=== PATIENT | male | born 1965 | race Caucasian/White ===

== ENCOUNTER → 2016-10-03 | Outpatient (CLI) | payer OTHER ==
[~2016-10-03] MED LIST: CEPH500C2 PO; CLON1TAB3 PO; OMEP20CA9 PO
--- NOTE | 2016-10-03 09:14 | DIAGNOSTIC IMAGING REPORT ---
LEFT SHOULDER MIN 2 VIEWS ROUTINE CLINICAL HISTORY: Left shoulder pain following injury. COMPARISON: None FINDINGS: Alignment of the left shoulder is anatomic. There is no acute fracture. There is mild AC joint arthritis and minimal glenohumeral joint arthritis. IMPRESSION: 1. No acute fracture or dislocation of the left shoulder. 2. Mild arthritis of the left acromioclavicular and glenohumeral joints. Electronically signed by: David Brady M.D. 10/03/2016 9:13 AM Dictated Date/Time: 10/03/2016 8:45 AM
== END | disposition home or self-care (01) ==
LOC: C.LAB1850 08:18
PROVIDERS: ATTEND Nurse Practitioner Adult Health
DX: M25.512 Pain in left shoulder (principal)

== ENCOUNTER → 2017-05-20 | Outpatient (CLI) | payer OTHER ==
[2017-05-20 18:15] LABS: SYNOVIAL FLUID APPEARANCE HAZY; SYNOVIAL FLUID COLOR PALE YELLOW
[2017-05-22 21:31] LABS: LYME DNA PCR CSF OR SYNOVIAL Detected (Not Detected); LYME DNA SOURCE Synovial Fluid
== END ==
LOC: C.LABBC 14:33
PROVIDERS: ATTEND Orthopaedic Surgery Sports Medicine
DX: M25.462 Effusion, left knee (principal)

== ENCOUNTER → 2017-06-26 | Outpatient (CLI) | payer OTHER ==
[2017-06-26 16:55] LABS: SYNOVIAL FLUID APPEARANCE HAZY; SYNOVIAL FLUID COLOR YELLOW; SYNOVIAL FLUID MONONUC RELAT 26.3 %; SYNOVIAL FLUID POLYNUC RELAT 73.7 %
[2017-07-01 16:35] LABS: LYME DNA PCR CSF OR SYNOVIAL Detected (Not Detected); LYME DNA SOURCE Synovial Fluid
== END | disposition home or self-care (01) ==
LOC: C.LABBC 14:37
PROVIDERS: ATTEND Orthopaedic Surgery Sports Medicine
DX: M25.469 Effusion, unspecified knee (principal)

== ENCOUNTER → 2017-07-03 | Outpatient (CLI) | payer BC ==
[2017-07-03 12:03] LABS: LYME DISEASE AB IGG POS (NEG); LYME DISEASE AB IGM POS (NEG)
[2017-07-06 18:37] LABS: ANAPLASMA PHAGOCYTOPHIL IGG <1:64 (<1:64); ANAPLASMA PHAGOCYTOPHIL IGM <1:20 (<1:20)
== END | disposition home or self-care (01) ==
LOC: C.LAB1850 10:04
PROVIDERS: ATTEND Internal Medicine Infectious Disease
DX: A69.20 Lyme disease, unspecified (principal)

== ENCOUNTER 2022-10-19 12:20 | Observation (INO) ==
[2022-10-19] MEDS ORDERED: SODIUM CHLORIDE 0.9% 1000ML 1,000 ML IV STA (12:27)
[2022-10-19] MEDS ORDERED: SODIUM CHLORIDE 0.9% 500 ML IV SCH (12:30)
[2022-10-19 12:55] LABS: Basophils # (auto) 0.04 K/uL (0-0.2); Basophils % (auto) 0.5 %; Eosinophils # (auto) 0.07 K/uL (0-0.50); Eosinophils % (auto) 0.9 %; Hematocrit (blood only) 32.3 % (42.0-52.0); Hemoglobin 11.1 g/dl (14.0-18.0); Immature Granulocytes # (auto) 0.02 K/uL (0.01-0.20); Immature Granulocytes % (auto) 0.3 %; Lymphocytes # (auto) 2.11 K/uL (1.2-3.4); Lymphocytes % (auto) 27.2 %; Mean Corpuscular Hemoglobin 32.7 pg (25.0-34.0); Mean Corpuscular Hgb Conc 34.4 g/dL (32.0-36.0); Mean Corpuscular Volume 95.3 fL (80.0-100.0); Mean Platelet Volume 9.9 fL (9.4-12.4); Neutrophils # (auto) 4.82 K/uL (1.40-6.50); Neutrophils % (auto) 62.1 %; Platelet Count 175 K/uL (130-400); RDW Coefficient of Variation 15.6 % (11.5-14.5); RDW Standard Deviation 54.4 fL (36.4-46.3); Red Blood Count 3.39 M/uL (4.70-6.10); White Blood Count 7.76 K/ul (4.8-10.8)
[2022-10-19 13:13] LABS: iSTAT Creatinine 0.9 mg/dl (0.6-1.3); iSTAT Hemoglobin 11.2 g/dl (14.0-18.0); iSTAT Ionized Calcium 1.2 mmol/l (1.12-1.32); iSTAT Potassium 3.7 mmol/L (3.3-5.0)
--- NOTE | 2022-10-19 13:16 | Emergency Department Note ---
Impression & Plan Acute lower GI bleeding, Status post colonoscopy with polypectomy ED Provider Note INFORMANT: Patient ED PROVIDER(S): Cheng Koch MD CHIEF COMPLAINT: Rectal bleeding PLAN: Disposition: Admitted Condition: Good Outpatient prescription management: none Referral: None patient presented emergency room because of rectal bleeding. He is 2 days post colonoscopy. Patient had MEDICAL DECISION MAKING: Images of his bathroom and there was a significant on a blood in his toilet bowl. He was hemodynamically stable although very mildly tachycardic on arrival. Patient was hydrated with IV normal saline. Patient had an i-STAT performed and it showed very mild anemia. Record review indicated the patient has a history of anemia although he is about a point and a half lower than normal. Remainder of the patient's blood work was unremarkable. Imaging was considered but deferred given his benign abdomen. Because of the recent procedure I did consult with gastroenterology on-call, . She recommended having the patient brought into the hospitalist service, prepped and then evaluated for potential management with gastroenterology tomorrow. I discussed this with the patient and significant other. They were in agreement. Consultation was made with the [facility] hospitalist service. Case was discussed and diagnostics were reviewed. Patient was evaluated in the ER and admitted for further management Discussed with manager reporting. After review of the information above and other included data, I feel the patient is further management in the hospital. Triage Nursing notes reviewed and agree them. Vital Signs: reviewed and remarkable for minimal tachycardia Prior /Outside records reviewed: Colonoscopy and endoscopy reports reviewed. Patient did have a cold snare biopsy of the colonic polyps. Differential diagnosis: Post colonoscopy bleeding, diverticulosis, AVM, coagulopathy, colitis, inflammatory bowel disease, malignancy, Viviana-Tang tear, esophagitis, peptic ulcer disease, variceal bleed, gastritis, epistaxis, fissure, hemorrhoids, as well as other pathologies. Diagnostics, as interpreted by me: EC Lead ECG performed and revealed Normal sinus rhythm at 82, normal Hettinger, QRS normal. No elevation or depression. No PACs or PVCs Cardiac Monitoring: Cardiac monitoring ordered by me: The patient was placed on continuous cardiac monitoring and observed. It revealed a normal sinus rhythm at 98 beats per minute without ectopy or evidence of dysrhythmia. Medical decision rules: none Imaging studies: Deferred HPI: The patient is a 57year old male who presents to the Emergency Room with complaints of rectal bleeding. Patient underwent colonoscopy with polyp removal 2 days ago. This started a little yesterday and then is noted to have increased significantly. Patient notes about 6 bloody bowel movements. the patient also notes the following associated symptoms, a little bit of lightheadedness, feeling somewhat bloated but denies any abdominal pain. Patient is not on any blood thinners, Plavix or aspirin. The patient has no medication for relieving factors. Current pain is rated as 0/10. Pt denies LOC, headache, fevers, chill s, diaphoresis, visual changes, neck pain, chest pain, breathing difficulties, nausea, vomiting, abdominal pain, back pain, melena, urinary symptoms, numbness, weakness, lymphadenopathy, rash, or other complaints. PAST MEDICAL HISTORY: See Below, GERD PAST SURGICAL HISTORY: See Below, endoscopy and colonoscopy SOCIAL HISTORY: See Below, employed HOME MEDICATIONS: See Below ALLERGIES: See Below VITALS: See Below PHYSICAL EXAMINATION: GENERAL: Awake, alert, well-appearing, in no distress HENT: Normocephalic, atraumatic. Oropharynx unremarkable. EYES: Mildly pale conjunctiva. Sclera non-icteric. NECK: Inspection normal. Non-tender. Supple. No nuchal rigidity. FROM. No masses. RESPIRATORY: Clear to auscultation. No wheezes. No rales. Normal respiratory effort. CARDIAC: Borderline tachycardic rate. Normal rhythm. No murmurs. No rubs. Extremities warm and well perfused. Pulses equal. No JVD. GI: Soft, non-distended. No tenderness to palpation. No rebound or guarding. No masses. RECTAL: Deferred. MUSCULOSKELETAL: Atraumatic. Chest examination reveals no tenderness. The back is symmetrical on inspection without obvious abnormality. There is no CVA tenderness to palpation. No joint edema. LOWER EXTREMITIES: Calves are equal size bilaterally and non-tender. No edema. No discoloration. NEURO: Normal sensorium. No sensory or motor deficits noted. SKIN: No rash or jaundice noted. Past Med/Surg History Medical History Elevated liver enzymes GERD (gastroesophageal reflux disease) Hepatic steatosis History of IBS Lyme disease LAST DX 2020 Prediabetes Restless leg syndrome Surgical History H/O colonoscopy History of tonsillectomy History of tooth extraction Family History Father Prostate cancer Lung cancer Mother Diabetes Grandmother (Paternal) Breast cancer Other No family history of adverse response to anesthesia Denies family history of Ovarian cancer Myocardial infarction Colorectal cancer Social History (Updated 05/01/22 @ 14:32 by Chani Juárez LPN) Smoking Status: Never smoker Age Started Using Tobacco: 11; Age Quit Using Tobacco: 28; Second Hand Exposure: Yes ( A CHILD); Hx Alcohol Use: Yes Alcohol type: beer Alcohol Intake Frequency: 4 or More x per/Week Hx Substance Use: No Preferred Language: Czech Visual Impairment: No Limitations Hearing Ability: Normal Hotel Server Required: No Beliefs That Will Affect Care: None marital status: Current Living Situation: Spouse current occupational status: employed 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 Feels Safe at Home: Yes Childhood Exposure to Second-Hand Smoke: Yes caffeine: No during the past year weight has: decreased > 10 lbs Dental Care, Regularly: No Physical Activity Frequency: Does not Exercise Seatbelt Use: always Sunscreen Use: No Assistive Devices: Denture - Upper and Denture - Lower Allergies Allergies Allergy/AdvReac Type Severity Reaction Status Date / Time trimethoprim Allergy Mild Rash Verified 10/19/22 14:20 Home Meds Home Medications Medication Instructions Recorded Confirmed cholecalciferol (vitamin D3) 25 25 mcg PO QAM 10/13/22 10/19/22 mcg (1,000 unit) tablet (Vitamin D3) metformin 500 mg tablet 500 mg PO QPM 10/13/22 10/19/22 milk thistle 200 mg capsule 200 mg PO QAM 10/13/22 10/19/22 multivitamin 1 tab PO QAM 10/13/22 10/19/22 omega-3 fatty acids 1,000 mg PO QAM 10/13/22 10/19/22 omeprazole 20 mg capsule,delayed 20 mg PO QAM 10/13/22 10/19/22 release turmeric 400 mg capsule 400 mg PO QAM 10/13/22 10/19/22 Previous Rx's Medication Instructions Recorded blood sugar diagnostic ([employer] #100 ea 05/13/22 Ultra Test strips) blood-glucose meter ([employer] #1 ea 05/13/22 Ultra2 Meter kit) lancets 30 gauge (OneTouch Delica #100 ea 05/13/22 Lancets) clonazepam 1 mg tablet See Rx Instructions PO DAILY PRN 09/05/22 restless leg(s) #30 tabs sildenafil (pulm.hypertension) 20 See Rx Instructions PO .COMPLEX 09/05/22 mg tablet #90 tabs Results & Data (ED) Vital Signs Vital Signs - 24 hr 10/19/22 12:22 10/19/22 12:40 10/19/22 13:28 Temperature 36.4 C L Temperature Source Temporal Artery Scan Pulse Rate 100 H 77 Pulse Rate [Apical] Respiratory Rate 19 Respiratory Effort / Characteristics Non-Labored Blood Pressure 149/96 H Blood Pressure [Left Arm] Blood Pressure Mean 113 Blood Pressure Mean [Left Arm] Pulse Oximetry 98 98 Oxygen Delivery Method Room Air Room Air Sepsis Recent Fever Within 48 Hours No Sepsis New/Unexplained Change in Mental Status N/A Sepsis Action Taken by Nursing No Action Required 10/19/22 14:13 10/19/22 14:30 Temperature Temperature Source Pulse Rate 78 Pulse Rate [Apical] 78 Respiratory Rate 18 17 Respiratory Effort / Characteristics Blood Pressure Blood Pressure [Left Arm] 137/86 Blood Pressure Mean Blood Pressure Mean [Left Arm] 103 Pulse Oximetry 96 Oxygen Delivery Method Room Air Sepsis Recent Fever Within 48 Hours Sepsis New/Unexplained Change in Mental Status Sepsis Action Taken by Nursing Laboratory Data 10/19/22 12:42 10/19/22 12:42 Lab Results 10/19/22 10/19/22 10/19/22 Range/Units 12:42 12:42 12:42 WBC 7.76 (4.8-10.8) K/ul RBC 3.39 L (4.70-6.10) M/uL Hgb 11.1 L (14.0-18.0) g/dl POC Hgb (14.0-18.0) g/dl Hct 32.3 L (42.0-52.0) % POC Hct (42-52) % MCV 95.3 (80.0-100.0) fL MCH 32.7 (25.0-34.0) pg MCHC 34.4 (32.0-36.0) g/dL RDW Std Deviation 54.4 H (36.4-46.3) fL RDW Coeff of Giacomo 15.6 H (11.5-14.5) % Plt Count 175 (130-400) K/uL MPV 9.9 (9.4-12.4) fL Immature Gran % (Auto) 0.3 % Neut % (Auto) 62.1 % Lymph % (Auto) 27.2 % [place] % (Auto) 9.0 % Eos % (Auto) 0.9 % Baso % (Auto) 0.5 % Neut # (Auto) 4.82 (1.40-6.50) K/uL Lymph # (Auto) 2.11 (1.2-3.4) K/uL [place] # (Auto) 0.70 H (0.11-0.59) K/uL Eos # (Auto) 0.07 (0-0.50) K/uL Baso # (Auto) 0.04 (0-0.2) K/uL Immature Gran # (Auto) 0.02 (0.01-0.20) K/uL PT 11.2 (9.0-12.0) Seconds INR 1.1 (0.9-1.1) APTT 22.9 (21.0-31.0) Seconds PTT Ratio 0.8 POC Sodium (135-144) mmol/L Sodium (136-145) mmol/L POC Potassium (3.3-5.0) mmol/L Potassium (3.5-5.1) mmol/L POC Chloride (101-112) mmol/L Chloride (98-107) mmol/L Carbon Dioxide (21-32) mmol/L POC Total CO2 (24-31) mmol/L Anion Gap (3-11) POC Anion Gap (16-25) mmol/L POC BUN (7-18) mg/dl BUN (6-23) mg/dl Creatinine (0.6-1.4) mg/dl POC Creatinine (0.6-1.3) mg/dl Est Cr Clr Drug Dosing ml/min Est GFR ( Amer) ml/min Est GFR (Non-Af Amer) ml/min BUN/Creatinine Ratio (10-20) Glucose (70-99(Fasting)) mg/dl POC Glucose (other) (70-99) mg/dl Calcium (8.5-10.1) mg/dl POC Ioniz Calcium Jonathan (1.12-1.32) mmol/l Total Bilirubin (0.2-1.0) mg/dl AST (13-39) U/L ALT (7-52) U/L Alkaline Phosphatase (34-104) U/L Troponin I High Sens (0-20) pg/ml Total Protein (6.0-8.3) gm/dl Albumin (3.4-5.0) gm/dl Globulin (2.5-4.0) gm/dl Albumin/Globulin Ratio (0.9-2) SARS-CoV-2, RNA, NAAT (NEGATIVE) Blood Type A Positive Antibody Screen NEGATIVE 10/19/22 10/19/22 10/19/22 Range/Units 12:42 12:59 13:20 WBC (4.8-10.8) K/ul RBC (4.70-6.10) M/uL Hgb (14.0-18.0) g/dl POC Hgb 11.2 L (14.0-18.0) g/dl Hct (42.0-52.0) % POC Hct 33 L (42-52) % MCV (80.0-100.0) fL MCH (25.0-34.0) pg MCHC (32.0-36.0) g/dL RDW Std Deviation (36.4-46.3) fL RDW Coeff of Giacomo (11.5-14.5) % Plt Count (130-400) K/uL MPV (9.4-12.4) fL Immature Gran % (Auto) % Neut % (Auto) % Lymph % (Auto) % [place] % (Auto) % Eos % (Auto) % Baso % (Auto) % Neut # (Auto) (1.40-6.50) K/uL Lymph # (Auto) (1.2-3.4) K/uL [place] # (Auto) (0.11-0.59) K/uL Eos # (Auto) (0-0.50) K/uL Baso # (Auto) (0-0.2) K/uL Immature Gran # (Auto) (0.01-0.20) K/uL PT (9.0-12.0) Seconds INR (0.9-1.1) APTT (21.0-31.0) Seconds PTT Ratio POC Sodium 139 (135-144) mmol/L Sodium 137 (136-145) mmol/L POC Potassium 3.7 (3.3-5.0) mmol/L Potassium 3.8 (3.5-5.1) mmol/L POC Chloride 102 (101-112) mmol/L Chloride 104 (98-107) mmol/L Carbon Dioxide 30 (21-32) mmol/L POC Total CO2 25 (24-31) mmol/L Anion Gap 3 (3-11) POC Anion Gap 17.0 (16-25) mmol/L POC BUN 14 (7-18) mg/dl BUN 16 (6-23) mg/dl Creatinine 0.91 (0.6-1.4) mg/dl POC Creatinine 0.9 (0.6-1.3) mg/dl Est Cr Clr Drug Dosing 81.7 ml/min Est GFR ( Amer) 106.5 ml/min Est GFR (Non-Af Amer) 91.9 ml/min BUN/Creatinine Ratio 17.6 (10-20) Glucose 117 H (70-99(Fasting)) mg/dl POC Glucose (other) 114 H (70-99) mg/dl Calcium 9.0 (8.5-10.1) mg/dl POC Ioniz Calcium Jonathan 1.20 (1.12-1.32) mmol/l Total Bilirubin 1.3 H (0.2-1.0) mg/dl AST 17 (13-39) U/L ALT 17 (7-52) U/L Alkaline Phosphatase 52 (34-104) U/L Troponin I High Sens 3.6 (0-20) pg/ml Total Protein 6.7 (6.0-8.3) gm/dl Albumin 4.0 (3.4-5.0) gm/dl Globulin 2.7 (2.5-4.0) gm/dl Albumin/Globulin Ratio 1.5 (0.9-2) SARS-CoV-2, RNA, NAAT NEGATIVE (NEGATIVE) Blood Type Antibody Screen Administered Medications Sodium Chloride (Nss 1000ml) 1,000 mls @ 125 mls/hr IV .Q8H STA Stop: 10/19/22 20:26 Last Admin: 10/19/22 15:42 Dose: 125 mls/hr Documented By: LUIS ANTONIO Discontinued Medications Sodium Chloride (Nss) 500 mls @ 999 mls/hr IV .Q31M JANETTE Stop: 10/19/22 13:00 Last Infusion: 10/19/22 13:58 Dose: 0 mls/hr Documented By: Admin: 10/19/22 13:26 Dose: 999 mls/hr Documented By: OL Discharge Plan Visit Data Chief Complaint: Rectal Bleed Stated Complaint: RECTAL BLEED ED Provider: Cheng Koch Discharge Problem: Acute lower GI bleeding, Status post colonoscopy with polypectomy Patient Disposition: Admitted As Inpatient Discharge Instructions Interventions: ED Discharge Assessment Last Done: 10/19/22 16:30
[2022-10-19 13:17] LABS: Albumin Globulin Ratio 1.5 (0.9-2); BUN Creatinine Ratio 17.6 (10-20); Bilirubin,Total 1.3 mg/dl (0.2-1.0); Creatinine Clr Calc Pharmacy 81.7 ml/min; Est GFR (African American) 106.5 ml/min; Est GFR (Non-African American) 91.9 ml/min; Globulin 2.7 gm/dl (2.5-4.0); Potassium 3.8 mmol/L (3.5-5.1); Total Protein 6.7 gm/dl (6.0-8.3)
[2022-10-19 13:21] LABS: Troponin I High Sensitivity 3.6 pg/ml (0-20)
[2022-10-19 13:27] LABS: INR 1.1 (0.9-1.1); Partial Thromboplastin Ratio 0.8; Partial Thromboplastin Time 22.9 Seconds (21.0-31.0); Prothrombin Time 11.2 Seconds (9.0-12.0)
--- NOTE | 2022-10-19 13:43 | Communication Note ---
Date of Service: October 19, 2022 Spoke to the ER doc about this patient. Intermittent hematochezia since colonoscopy on . Not on blood thinners, hemodynamically stable. A few polyps removed via hot/cold snare on review of Dr. Matos's note from 10/17. 1 gram drop in hgb noted on labs, no significant hemodynamic instability noted on review of vitals. Would plan for admission, prep today - he will likely pass some red stool with the prep, likely repeat colonoscopy tomorrow.
--- NOTE | 2022-10-19 14:36 | History & Physical Report ---
Date of Service October 19, 2022 Assessment & Plan (1) Acute lower GI bleeding: Plan: - S/P screening colonoscopy on 10/17/[address] Matos - Underwent resection of multiple polyps in both the ascending and transverse colon - Reviewed CBC, H&H currently without significant drop, 12.6 --> 11.1 today - BP and HR stable - GI contacted, plan for prep today and likely repeat colonoscopy tomorrow - For now, clear liquid diet, NPO after MN - Consult Dr. Matos, appreciate assistance - Monitor serial H&Hs (2) Prediabetes: Plan: - Continue Metformin 500mg at HS (3) GERD (gastroesophageal reflux disease): Plan: - Continue Omeprazole (will change to Protonix per formulary) (4) Restless leg syndrome: Plan: - Continue Clonazepam Plan Repeat labs in AM. Above plan of care has been d/w Dr. Allan who will also see and evaluate this patient. Further orders will be implemented as warranted. History of Present Illness Chief Complaint: rectal bleeding Primary Care Provider: Tali Garcia PA-C Bijan Neal is a 57 yo WM who underwent an EGD and colonoscopy on 10/[address] Matos who presents today c/o rectal bleeding x 2 days. Patient reports that he had a colonoscopy Thursday. On Thursday, had 6 episodes of passing BRB from rectum and today reports two episodes. He denies abdominal pain, n/v. He reported some lightheadedness on Thursday, but none today. He denies dyspnea, cp, fever, chills, headache, or gu symptoms. ER work up today shows a hgb of 11.1 and is hemodynamically stable. 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 Matos tomorrow for likely repeat colonoscopy. Subsequently, hospitalists were contacted for admission. He is currently comfortable in ER litter w/o complaints other than being "hungry." Allergies Allergy/AdvReac Type Severity Reaction Status Date / Time trimethoprim Allergy Mild Rash Verified 10/19/22 14:20 Home Medications Medication Instructions Recorded Confirmed Type blood sugar diagnostic (OneTouch #100 ea 05/13/22 06/20/22 Rx Ultra Test strips) blood-glucose meter ([employer] #1 ea 05/13/22 06/20/22 Rx Ultra2 Meter kit) lancets 30 gauge ([employer] #100 ea 05/13/22 06/20/22 Rx Lancets) clonazepam 1 mg tablet See Rx Instructions PO DAILY PRN 09/05/22 10/19/22 Rx restless leg(s) #30 tabs sildenafil (pulm.hypertension) 20 See Rx Instructions PO .COMPLEX 09/05/22 10/19/22 Rx mg tablet #90 tabs cholecalciferol (vitamin D3) 25 25 mcg PO QAM 10/13/22 10/19/22 History mcg (1,000 unit) tablet (Vitamin D3) metformin 500 mg tablet 500 mg PO QPM 10/13/22 10/19/22 History milk thistle 200 mg capsule 200 mg PO QAM 10/13/22 10/19/22 History multivitamin 1 tab PO QAM 10/13/22 10/19/22 History omega-3 fatty acids 1,000 mg PO QAM 10/13/22 10/19/22 History omeprazole 20 mg capsule,delayed 20 mg PO QAM 10/13/22 10/19/22 History release turmeric 400 mg capsule 400 mg PO QAM 10/13/22 10/19/22 History Past Med/Surg History Medical History Elevated liver enzymes GERD (gastroesophageal reflux disease) Hepatic steatosis History of IBS Lyme disease LAST DX 2020 Prediabetes Restless leg syndrome Surgical History H/O colonoscopy History of tonsillectomy History of tooth extraction Family History Father Prostate cancer Lung cancer Mother Diabetes Grandmother (Paternal) Breast cancer Other No family history of adverse response to anesthesia Denies family history of Ovarian cancer Myocardial infarction Colorectal cancer Social History (Updated 05/01/22 @ 14:32 by Chnai Juárez LPN) Smoking Status: Never smoker Age Started Using Tobacco: 11; Age Quit Using Tobacco: 28; Second Hand Exposure: Yes ( A CHILD); Hx Alcohol Use: Yes Alcohol type: beer Alcohol Intake Frequency: 4 or More x per/Week Hx Substance Use: No Preferred Language: Irish Visual Impairment: No Limitations Hearing Ability: Normal Wrister Required: No Beliefs That Will Affect Care: None marital status: Current Living Situation: Spouse current occupational status: employed 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 NAD. LUNGS: Clear to auscultation bilaterally. CARDIOVASCULAR: Regular rate and rhythm. ABDOMEN: Soft, non-tender and non-distended. No palpable masses. Bs normoactive x 4 quad. Results & Data Results & Data ([facility]) Vital Signs (Past 12 Hours) Vital Signs Temp Pulse Pulse Resp BP BP Pulse Ox 10/19/22 14:13 78 18 137/86 96 10/19/22 13:28 77 10/19/22 12:40 98 10/19/22 12:22 36.4 C L 100 H 19 149/96 H 98 O2 Del Method 10/19/22 14:13 Room Air 10/19/22 13:28 10/19/22 12:40 Room Air 10/19/22 12:22 Room Air Laboratory Results 10/19/22 12:42 10/19/22 12:42 Code Status & VTE Plan Code Status Full Supervising Physician Co-Signing Physician Notes Patient seen and examined, chart reviewed, case discussed with Alejandra Falcon PA-C and I agree with the assessment and plan as above except as otherwise noted Labs and images reviewed Bijan is a 57-year-old male with history of DM, GERD who presents with acute GI bleed after resection of polyps on a colonoscopy 10/17/2022. Patient recommended for hemoglobin trending, has dropped from 12.6-11.1. At bedside patient is nondistressed, hemodynamically stable, normotensive and is not tachycardic. No abdominal tenderness. Lungs are clear, heart rate is regular. Agree with above, continue clear liquid diet, GI consulted, n.p.o. after midnight PG Care Time/CCT Total # of Minutes Spent Total Time Spent with Patient: Total time spent is greater than 50% in coordination of care (as documented) at patient's floor/unit and/or counseling patient: Coding Level of Care Code 76111 INT INP/OBS CARE Diagnoses Acute lower GI bleeding K92.2 Prediabetes R73.03 GERD (gastroesophageal reflux disease) K21.9 Restless leg syndrome G25.81
[2022-10-19] MEDS ORDERED: LAVAGE SOLUTION 4000ML PO STA (17:32)
[2022-10-19] MEDS ORDERED: ONDANSETRON INJ 2 MG/ML 2 ML VIAL IV PRN (17:32)
[2022-10-19] MEDS ORDERED: MAGNESIUM HYDROXIDE SUSP 30 ML UDC PO PRN (17:32)
[2022-10-19] MEDS ORDERED: bisacodyL 5 MG TABEC PO ONE (17:32)
[2022-10-19] MEDS ORDERED: clonazePAM 1 MG TAB PO PRN (17:32)
[2022-10-19] MEDS ORDERED: ALUMINUM/MAGNESIUM SUSP 30 ML UDC PO PRN (17:32)
[2022-10-19] MEDS ORDERED: ACETAMINOPHEN 325 MG TAB PO PRN (17:32)
[2022-10-19 18:17] LABS: Hematocrit (blood only) 28.5 % (42.0-52.0); Hemoglobin 9.8 g/dl (14.0-18.0)
[2022-10-19] MEDS: metFORMIN HCL 500 MG TAB PO SCH ×2 (20:46→20:47)
[2022-10-20 07:26] LABS: Basophils # (auto) 0.05 K/uL (0-0.2); Basophils % (auto) 0.9 %; Eosinophils # (auto) 0.22 K/uL (0-0.50); Eosinophils % (auto) 4.1 %; Hematocrit (blood only) 27.9 % (42.0-52.0); Hemoglobin 9.8 g/dl (14.0-18.0); Immature Granulocytes # (auto) 0.01 K/uL (0.01-0.20); Immature Granulocytes % (auto) 0.2 %; Lymphocytes # (auto) 1.82 K/uL (1.2-3.4); Lymphocytes % (auto) 34.3 %; Mean Corpuscular Hemoglobin 32.6 pg (25.0-34.0); Mean Corpuscular Hgb Conc 35.1 g/dL (32.0-36.0); Mean Corpuscular Volume 92.7 fL (80.0-100.0); Mean Platelet Volume 10.3 fL (9.4-12.4); Monocytes # (auto) 0.57 K/uL (0.11-0.59); Monocytes % (auto) 10.7 %; Neutrophils # (auto) 2.64 K/uL (1.40-6.50); Neutrophils % (auto) 49.8 %; Platelet Count 169 K/uL (130-400); RDW Coefficient of Variation 15.5 % (11.5-14.5); RDW Standard Deviation 52.7 fL (36.4-46.3); Red Blood Count 3.01 M/uL (4.70-6.10); White Blood Count 5.31 K/ul (4.8-10.8)
[2022-10-20 07:45] LABS: BUN Creatinine Ratio 11.7 (10-20); Calcium 8.6 mg/dl (8.5-10.1); Creatinine Clr Calc Pharmacy 96.6 ml/min; Est GFR (African American) 115.1 ml/min; Est GFR (Non-African American) 99.3 ml/min; Magnesium 1.8 mg/dl (1.7-2.4); Potassium 3.7 mmol/L (3.5-5.1)
[2022-10-20] MEDS ORDERED: PANTOprazole 40 MG TAB PO SCH (09:00)
--- NOTE | 2022-10-20 09:50 | Gastrointestinal Consultation ---
Date of Consultation October 20, 2022 Assessment & Plan (1) Status post colonoscopy with polypectomy: Discussed case with Dr. Ray who advised on plan. Will set the patient up for colonoscopy today to further evaluate. Likely post polypectomy bleeding. Patient agreeable to plan. History of Present Illness Reason for Consultation: rectal bleeding s/p colonoscopy Requesting Physician: Alejandra Falcon PA-C Attending Physician: Darryl Araya MD History of Present Illness Patient is a 57 year old male who underwent a colonoscopy on 10/17/[address] Matos and had seven polyps removed from the transverse and ascending colon. He tells me he did well after the procedure until the following day when he started having rectal bleeding. He came to the ED for evaluation and was admitted. GI computational geneticist over the weekend started a prep with plan for colonoscopy on Thursday. He has done the majority of his prep and tells me that stools are clear at this time. He tells me bleeding stopped around midnight last night. He denies any nsaid use. no blood thinners per patient. He denies any issues with nausea, vomiting, abdominal pain, melena, sob, chest pain. Colonoscopy 10/17/22 internal hemorrhoids, diverticulosis, and seven colon polyps in transverse/ascending colon. Allergies Allergy/AdvReac Type Severity Reaction Status Date / Time trimethoprim Allergy Mild Rash Verified 10/19/22 14:20 Home Medications Medication Instructions Recorded Confirmed Type blood sugar diagnostic (OneTouch #100 ea 05/13/22 06/20/22 Rx Ultra Test strips) blood-glucose meter (OneTouch #1 ea 05/13/22 06/20/22 Rx Ultra2 Meter kit) lancets 30 gauge (OneTouch Delica #100 ea 05/13/22 06/20/22 Rx Lancets) clonazepam 1 mg tablet See Rx Instructions PO DAILY PRN 09/05/22 10/19/22 Rx restless leg(s) #30 tabs sildenafil (pulm.hypertension) 20 See Rx Instructions PO .COMPLEX 09/05/22 10/19/22 Rx mg tablet #90 tabs cholecalciferol (vitamin D3) 25 25 mcg PO QAM 10/13/22 10/19/22 History mcg (1,000 unit) tablet (Vitamin D3) metformin 500 mg tablet 500 mg PO QPM 10/13/22 10/19/22 History milk thistle 200 mg capsule 200 mg PO QAM 10/13/22 10/19/22 History multivitamin 1 tab PO QAM 10/13/22 10/19/22 History omega-3 fatty acids 1,000 mg PO QAM 10/13/22 10/19/22 History omeprazole 20 mg capsule,delayed 20 mg PO QAM 10/13/22 10/19/22 History release turmeric 400 mg capsule 400 mg PO QAM 10/13/22 10/19/22 History Patient History Medical History Elevated liver enzymes GERD (gastroesophageal reflux disease) Hepatic steatosis History of IBS Lyme disease LAST DX 2020 Prediabetes Restless leg syndrome Surgical History H/O colonoscopy History of tonsillectomy History of tooth extraction Family History Father Prostate cancer Lung cancer Mother Diabetes Grandmother (Paternal) Breast cancer Other No family history of adverse response to anesthesia Denies family history of Ovarian cancer Myocardial infarction Colorectal cancer Social History (Updated 05/01/22 @ 14:32 by Chani Juárez LPN) Smoking Status: Never smoker Age Started Using Tobacco: 11; Age Quit Using Tobacco: 28; Second Hand Exposure: Yes ( A CHILD); Hx Alcohol Use: Yes Alcohol type: beer Alcohol Intake Frequency: 4 or More x per/Week Hx Substance Use: No Preferred Language: Belarusian Communication Ability: Effective Visual Impairment: No Limitations Hearing Ability: Normal Electron Beam Welder Setter Required: No Beliefs That Will Affect Care: None marital status: Current Living Situation: Spouse current occupational status: employed 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 Feels Safe at Home: Yes Childhood Exposure to Second-Hand Smoke: Yes caffeine: No during the past year weight has: decreased > 10 lbs Dental Care, Regularly: No Physical Activity Frequency: Does not Exercise Seatbelt Use: always Sunscreen Use: No Assistive Devices: Denture - Upper and Denture - Lower Review of Systems Review of Systems: All systems reviewed & are unremarkable except as noted in HPI & below Physical Exam Constitutional: WD/WN, vitals as above Respiratory: normal respiratory effort, lungs clear to auscultation Cardiovascular: RRR, no murmur, no edema Gastrointestinal (Abdomen): normal bowel sounds, soft, nontender, no hepatosplenomegaly Skin: no rashes, warm and dry Psychiatric: Orientation: alert and oriented x 3 Affect: euthymic affect Results & Data ([facility]) Vital Signs (Past 12 Hours) Vital Signs Temp Pulse Resp BP Pulse Ox O2 Del Method 10/20/22 08:01 36.9 C 70 16 114/72 96 Room Air 10/19/22 22:23 36.4 C L 68 17 131/76 96 Room Air PG Care Time/CCT Total # of Minutes Spent Total Time Spent with Patient: Total time spent is greater than 50% in coordination of care (as documented) at patient's floor/unit and/or counseling patient: Coding Level of Care Code 26500 IN/OBS CONSULT LVL 2,35M Diagnoses Status post colonoscopy with polypectomy Z98.890 Time Spent (min) 37
--- NOTE | 2022-10-20 13:02 | Discharge Summary ---
Date of Service October 20, 2022 Admission HPI Per Admitting Provider Bijan Neal is a 57 yo WM who underwent an EGD and colonoscopy on 10/[address] Matos who presents today c/o rectal bleeding x 2 days. Patient reports that he had a colonoscopy Thursday. On Thursday, had 6 episodes of passing BRB from rectum and today reports two episodes. He denies abdominal pain, n/v. He reported some lightheadedness on Thursday, but none today. He denies dyspnea, cp, fever, chills, headache, or gu symptoms. ER work up today shows a hgb of 11.1 and is hemodynamically stable. Case was d/w operations clerk almond roaster who recommended starting prep and consulting Dr. Matos tomorrow for likely repeat colonoscopy. Subsequently, hospitalists were contacted for admission. He is currently comfortable in ER litter w/o complaints other than being "hungry." Principal Diagnosis 1. Rectal bleeding following colonoscopy with polypectomy 2. Mild acute on chronic anemia due to blood loss Discharge Exam GENERAL: 57 yo Well-developed, well-nourished WM. NAD. LUNGS: Clear to auscultation bilaterally. CARDIOVASCULAR: Regular rate and rhythm. ABDOMEN: Soft, non-tender and non-distended. No palpable masses. Bs normoactive x 4 quad. Discharge Data Allergies Allergy/AdvReac Type Severity Reaction Status Date / Time trimethoprim Allergy Mild Rash Verified 10/19/22 14:20 Consultations 10/19/22 15:07 ED Decision to Admit Stat 10/19/22 17:32 Consult Gastroenterology Routine Procedures Performed Operation Date: 10/20/22 17:00 Ulceration found in transverse colon, clips placed Hospital Course (1) Acute lower GI bleeding: - S/P screening colonoscopy on 10/17/[address] Matos - Underwent resection of multiple polyps in both the ascending and transverse colon - Reviewed CBC, H&H currently without significant drop, 12.6 --> 9.8 today - BP and HR have remained stable - GI prep for repeat colonoscopy ordered 10/19 - Consulted GI, for repeat colonoscopy today with Dr. Ray - Ulceration found at one of the polypectomy sites in transverse colon, clips placed - Diet advanced, will dc home today (2) Prediabetes: - Continue Metformin 500mg at HS (3) GERD (gastroesophageal reflux disease): - Continue Omeprazole (will change to Protonix per formulary) (4) Restless leg syndrome: - Continue Clonazepam Plan Advance diet and discharge home today. Follow up as scheduled with Dr. Case. Merline castillo up with PCP as needed. Above plan of care has been d/w Dr. Araya. Total Time Total Time Spent Total Time Spent (In Minutes): <30 minutes Discharge Plan Discharge Items Patient Disposition: Home - Self-Care Reason For Visit: RECTAL BLEED Discharge Diagnosis: rectal bleeding Activity: Resume your previous activity Non-emergency contact: Primary Care Provider and Casting Plug Assembler Call non-emergency contact if: you have any medication questions and your symptoms worsen Follow-up/Referrals: Tali Garcia PA-C [Primary Care Provider] - Diet: Carb Consistent or DM2 Addtl Attending Provider Instructions: You were hospitalized due to rectal bleeding following your colonoscopy which included removal of polyps. Pending Studies at Discharge: No Stand-Alone Forms: My [facility], Smoking Cessation Medications and DC Order Prescriptions: Continued clonazepam 1 mg tablet See Rx Instructions PO DAILY PRN (Reason: restless leg(s)) Qty: 30 0RF Rx Instructions: 1-2 tabs PO daily PRN; sildenafil (pulm.hypertension) 20 mg tablet See Rx Instructions PO .COMPLEX Qty: 90 2RF Rx Instructions: Take 1-5 tablets PO daily as needed 30min - 4 hours prior to sexual activity (DME) blood-glucose meter [OneTouch Ultra2 Meter] Kit See Rx Instructions .MEDSUPPLY Qty: 1 0RF Rx Instructions: As directed (DME) OneTouch Ultra Test Strip See Rx Instructions .MEDSUPPLY Qty: 100 3RF Rx Instructions: test once daily prior to meal (DME) lancets [OneTouch Delica Lancets] 30 gauge misc See Rx Instructions .MEDSUPPLY Qty: 100 3RF Rx Instructions: test once daily prior to meal multivitamin Tablet 1 tab PO QAM milk thistle 200 mg Capsule 200 mg PO QAM Rx Instructions: give with meal/snack omega-3 fatty acids Capsule 1,000 mg PO QAM cholecalciferol (vitamin D3) [Vitamin D3] 25 mcg (1,000 unit) Tablet 25 mcg PO QAM turmeric 400 mg Capsule 400 mg PO QAM metformin 500 mg tablet 500 mg PO QPM Rx Instructions: with meal omeprazole 20 mg capsule,delayed release(DR/EC) 20 mg PO QAM Discharge Orders: Discharge Order (Routine); Ordered 10/20/22 Ordered By: Alejandra Falcon Admission Data Admit Date/Time: 10/19/22 14:42 Attending Provider: Darryl Araya Admit Provider: Adam Allan Primary Care Provider: Tali Garcia Other Providers: Adam Allan ; Sundar Matos Other Interventions: Discharge Summary Assessment (RN) Last Done: 10/20/22 14:19 Coding Level of Care Code 74969 IN/OBS DISCH 30 MIN/LESS Diagnoses Acute lower GI bleeding K92.2 Prediabetes R73.03 GERD (gastroesophageal reflux disease) K21.9 Restless leg syndrome G25.81
--- NOTE | 2022-10-20 13:08 | Anesthesiology Consultation ---
Date of Service October 20, 2022 Assessment & Plan Chart Review Chart Review: Acceptable Risk for Surgery and Patient NOT seen in Pre Admission Testing Consults Requested cardiac ASA ASA2 Proposed Anesthesia Anesthesia Type: MAC Risk / Benefits Reviewed With: PT / POA / Parent / Guardian, Accepts Plan and Informed Consent Obtained Additional Comments: admitted last evening after post procedure bleeding from colonoscopy on Thursday (10/17/22) History Surgery Operation Date: 10/20/22 17:00 Proposed Procedures p Colonoscopy Dr. Flor Ray MD Height/Weight Height: 5 ft 7 in Weight: 68.9 kg Allergies Allergy/AdvReac Type Severity Reaction Status Date / Time trimethoprim Allergy Mild Rash Verified 10/19/22 14:20 Medications Home Medications Medication Instructions Recorded Confirmed Last Taken blood sugar diagnostic (OneTouch #100 ea 05/13/22 06/20/22 10/18/22 Ultra Test strips) blood-glucose meter (OneTouch #1 ea 05/13/22 06/20/22 10/18/22 Ultra2 Meter kit) lancets 30 gauge (OneTouch Delica #100 ea 05/13/22 06/20/22 10/18/22 Lancets) clonazepam 1 mg tablet See Rx Instructions PO DAILY PRN 09/05/22 10/19/22 10/14/22 restless leg(s) #30 tabs sildenafil (pulm.hypertension) 20 See Rx Instructions PO .COMPLEX 09/05/22 10/19/22 10/14/22 mg tablet #90 tabs cholecalciferol (vitamin D3) 25 25 mcg PO QAM 10/13/22 10/19/22 10/18/22 mcg (1,000 unit) tablet (Vitamin D3) metformin 500 mg tablet 500 mg PO QPM 10/13/22 10/19/22 10/18/22 milk thistle 200 mg capsule 200 mg PO QAM 10/13/22 10/19/22 10/18/22 multivitamin 1 tab PO QAM 10/13/22 10/19/22 10/18/22 omega-3 fatty acids 1,000 mg PO QAM 10/13/22 10/19/22 10/18/22 omeprazole 20 mg capsule,delayed 20 mg PO QAM 10/13/22 10/19/22 10/19/22 release turmeric 400 mg capsule 400 mg PO QAM 10/13/22 10/19/22 10/18/22 Active Medications Generic Name Dose Route Start Last Admin Trade Name Ortiz PRN Reason Stop Dose Admin Metformin HCl 500 mg 10/19/22 21:00 10/19/22 20:47 Metformin Hcl 500 Mg Tab PO 11/18/22 20:59 Not Given QPM JANETTE Pantoprazole Sodium 40 mg 10/20/22 09:00 10/20/22 07:41 Pantoprazole 40 Mg Tab PO 11/19/22 08:59 40 mg DAILY JANETTE Administration NPO Date Last Intake of Fluids: 10/20/22 Time Last Intake of Fluids: 08:00 Last Intake of Fluids Comment: sip with med Date Last Intake of Solids: 10/18/22 Time Last Intake of Solids: 17:00 Past Medical History Medical History Elevated liver enzymes GERD (gastroesophageal reflux disease) Hepatic steatosis History of IBS Lyme disease LAST DX 2020 Prediabetes Restless leg syndrome Exercise / Class Metabolic Activity II 4-5 Yardwork/Stairs/Walk up hill Past Family History Family History Father Prostate cancer Lung cancer Mother Diabetes Grandmother (Paternal) Breast cancer Other No family history of adverse response to anesthesia Denies family history of Ovarian cancer Myocardial infarction Colorectal cancer Past Surgical History Surgical History H/O colonoscopy History of tonsillectomy History of tooth extraction Past Anesthesia History No Hx of Anesthesia Complications and No Family Hx of Anesthesia Complications History of PONV No Hx of PONV and No Hx of Motion Sickness Social History Smoking Status: Never smoker tobacco type: cigarettes Hx Alcohol Use: Yes Alcohol type: beer alcohol intake frequency: 3 or more drinks per day Hx Substance Use: No substance use type: does not use Physical Exam Vital Signs Last Vital Signs Temp 36.7 C 10/20/22 12:56 Pulse 77 10/20/22 12:56 Resp 16 10/20/22 12:56 BP 155/87 H 10/20/22 12:56 Pulse Ox 96 10/20/22 12:56 O2 Del Method Room Air 10/20/22 12:56 Constitutional WD/WN, vitals as above Eyes PERRL, conjunctivae normal, anicteric sclerae ENMT external ear and nose normal, oropharynx normal Mouth: no dentition abnormality Thyromental Distance: > or= 3.5 Finger Breadths Mallampati Class: II Neck trachea midline, no thyromegaly Respiratory normal respiratory effort, lungs clear to auscultation Cardiovascular RRR, no murmur, no edema Musculoskeletal Head/Neck/Chest: normocephalic and head atraumatic Spine: normal cervical ROM and no pain with cervical ROM Extremities: extremities normal to inspection and strength 5/5 throughout; full ROM of extremities Skin no rashes, warm and dry Psychiatric A+Ox3, euthymic affect Testing Laboratory Results 10/20/22 07:04 10/20/22 07:04 PT 11.2 Seconds (9.0-12.0) 10/19/22 12:42 INR 1.1 (0.9-1.1) 10/19/22 12:42 APTT 22.9 Seconds (21.0-31.0) 10/19/22 12:42 Blood Type A Positive 10/19/22 12:42 Antibody Screen NEGATIVE 10/19/22 12:42
--- NOTE | 2022-10-20 13:52 | GI REPORT ---
Patient Name: Bijan Neal Procedure Date: 10/20/2022 1:20 PM Date of : 1965 Admit Type: Inpatient Age: 57 Gender: Male Attending MD: Owen Ray MD, Procedure: Colonoscopy Providers: Owen Ray MD Referring MD: Darryl Araya Indications: Hematochezia Medicines: Monitored Anesthesia Care Complications: No immediate complications. Estimated blood loss: None. Estimated Blood Loss: Estimated blood loss: none. Procedure: Pre-Anesthesia Assessment: - Prior Anticoagulants: The patient has taken no anticoagulant or antiplatelet agents. - ASA Grade Assessment: II - A patient with mild systemic disease. After I obtained informed consent, the scope was passed under direct vision. Throughout the procedure, the patient's blood pressure, pulse, and oxygen saturations were monitored continuously. The Colonoscope was introduced through the anus and advanced to the cecum, identified by appendiceal orifice and ileocecal valve. The colonoscopy was performed without difficulty. The patient tolerated the procedure well. The quality of the bowel preparation was fair. Findings: A single (solitary) ulcer was found in the transverse colon. No bleeding was present. Stigmata of recent bleeding were present. ulcer was previous polypectomy site. For hemostasis, two hemostatic clips were successfully placed. Clip open tenter operator: [employer]. There was no bleeding at the end of the procedure. A 3 mm polyp was found in the transverse colon. The polyp was sessile. The polyp was removed with a cold snare. Resection and retrieval were complete. Estimated blood loss: none. Non-bleeding internal hemorrhoids were found. The hemorrhoids were small. Impression: - Preparation of the colon was fair. - A single (solitary) ulcer in the transverse colon. Clips were placed. Clip open tenter operator: [employer]. - One 3 mm polyp in the transverse colon, removed with a cold snare. Resected and retrieved. - Non-bleeding internal hemorrhoids. Recommendation: - Return patient to [facility] for [facility] care. - Advance diet as tolerated today. - Await pathology results. - no heavy lifting for 3 days Owen Ray MD 10/20/2022 1:51:33 PM This report has been signed electronically. Note Initiated On: 10/20/2022 1:20 PM Number of Addenda: 0 I attest to the content of the Intraoperative Record and orders documented therein, exceptions below {[id number]}
--- NOTE | 2022-10-20 14:03 | Anesthesiology Progress Note ---
Date of Service October 20, 2022 Anesthesia Post Procedure Vital Signs Vital Signs: Temp Pulse Pulse Pulse Resp BP BP 10/20/22 13:48 80 16 105/69 10/20/22 12:56 36.7 C 77 16 155/87 H 10/20/22 08:01 36.9 C 70 16 114/72 10/19/22 22:23 36.4 C L 68 17 131/76 10/19/22 17:20 10/19/22 17:20 36.8 C 82 18 146/80 H 10/19/22 16:30 85 14 146/88 H 10/19/22 16:00 77 16 10/19/22 15:30 78 18 10/19/22 15:19 144/80 H 10/19/22 15:19 76 14 10/19/22 15:00 78 15 10/19/22 14:30 78 17 10/19/22 14:13 78 18 137/86 Pulse Ox O2 Del Method 10/20/22 13:48 95 Room Air 10/20/22 12:56 96 Room Air 10/20/22 08:01 96 Room Air 10/19/22 22:23 96 Room Air 10/19/22 17:20 Room Air 10/19/22 17:20 97 Room Air 10/19/22 16:30 96 Room Air 10/19/22 16:00 96 Room Air 10/19/22 15:30 96 Room Air 10/19/22 15:19 96 Room Air 10/19/22 15:19 10/19/22 15:00 10/19/22 14:30 10/19/22 14:13 96 Room Air Transfer of Care Handoff Completed per policy Notes Mental Status: alert / awake / arousable and participated in evaluation Patient Amnestic to Procedure: Yes Nausea / Vomiting: adequately controlled Pain: adequately controlled Airway Patency, RR, SpO2: stable & adequate BP & HR: stable & adequate Hydration State: stable & adequate Anesthetic Complications: no major complications apparent and Pt Satisfied with anesthetic care
--- NOTE | 2022-10-21 05:05 | Electrocardiogram Report ---
Test Reason : Blood Pressure : / mmHG Vent. Rate : 082 BPM Atrial Rate : 082 BPM P-R Int : 148 ms QRS Dur : 084 ms QT Int : 356 ms P-R-T Axes : 033 028 039 degrees QTc Int : 415 ms Normal sinus rhythm Normal ECG No previous ECGs available Confirmed by Renaldo Patel ([id number]) on 10/21/2022 5:05:03 AM Referred By: NO PCP Confirmed By:Renaldo Patel
== END 2022-10-20 16:00 | disposition home or self-care (01) ==
LOC: ED 12:20 → 3N 12:20 → SUATTDRO 14:42 → 3N 16:30